=== PATIENT | male | born 1995 | race African-American/Black ===

== ENCOUNTER 2018-12-11 15:11 | Emergency (ER) | payer MEDICAID ==
[~2018-12-11] VITALS: Ht 177.8 cm; Wt 72.6 kg
[2018-12-11 15:51] VITALS: BP 149/83
[2018-12-11] MEDS ORDERED: AZITHROMYCIN 250 MG TABLET PO ONE (16:30)
[2018-12-11] MEDS ORDERED: CEFTRIAXONE 500 MG VIAL IM ONE (16:30)
[2018-12-11] MEDS ORDERED: CEFTRIAXONE 500 MG VIAL ONE (17:18)
[2018-12-11] MEDS ORDERED: AZITHROMYCIN 250 MG TABLET ONE (17:18)
[2018-12-11] MEDS ORDERED: LIDOCAINE /MPF 1% VIAL 5 ML VIAL ONE (17:18)
== END 2018-12-11 17:33 | disposition home or self-care (01) ==
LOC: ER 15:15
DX: H10.89 Other conjunctivitis (principal); Z72.52 High risk homosexual behavior
CPT/HCPCS: 87491; 96372; 87591; 99283; J0696; J3490

== ENCOUNTER 2018-12-23 09:38 | Emergency (ER) | payer MEDICAID ==
[~2018-12-23] VITALS: Ht 177.8 cm; Wt 72.6 kg
[2018-12-23] MEDS ORDERED: KETOROLAC TROMETHAMINE INJ 60 MG/2 ML VIAL IM ONE ×2 (09:54→10:00)
[2018-12-23] MEDS ORDERED: MORPHINE SULFATE INJ 4 MG/ML DISP.SYRIN ONE (09:55)
[2018-12-23] MEDS ORDERED: ONDANSETRON 4 MG TAB.RAPDIS ONE (09:55)
[2018-12-23] MEDS ORDERED: MORPHINE SULFATE INJ 2 MG/ML DISP.SYRIN ONE (09:55)
[2018-12-23] MEDS ORDERED: MORPHINE SULFATE INJ 2 MG/ML DISP.SYRIN IM ONE (10:00)
[2018-12-23] MEDS ORDERED: ONDANSETRON 4 MG TAB.RAPDIS PO ONE (10:00)
[2018-12-23 10:34] VITALS: BP 170/106
--- NOTE | 2018-12-23 10:34 | NUR ---
Patient discharged to home in stable condition. Written and verbal after care instructions given. Patient verbalizes understanding of instruction.
== END 2018-12-23 10:35 | disposition home or self-care (01) ==
LOC: ER 09:39
DX: M54.5 Low back pain (principal); R50.9 Fever, unspecified
CPT/HCPCS: 96372 ×2; 99283; J1885; J2270 ×2; Q0162